=== PATIENT | male | born 1950 | race Caucasian/White ===

== ENCOUNTER 2018-02-12 08:35 | Outpatient (CLI) | payer MEDICARE ==
--- NOTE | 2018-02-12 15:04 | NM ---
NUCLEAR MEDICINE BRAIN IMAGING: Date: 02/12/18 HISTORY: Unspecified dementia with behavioral disturbance. TECHNIQUE: A DaTscan with axial tomographic images of the brain was obtained 3 hours following the intravenous a dministration of 4.7 mCi Iodine-123 Ioflupane. The patient was pretreated with 130 mg of potassium io dide 1 hour prior to the injection. FINDINGS: There is normal, symmetric uptake in the striata bilaterally, demonstrating symmetric, crescent-shape d, focal regions of activity mirrored about the median plane. IMPRESSION: Normal exam. POS: OFF
== END 2018-02-12 08:36 | disposition home or self-care (01) ==
LOC: NM 08:35
PROVIDERS: ATTEND Psychiatry & Neurology Neurology
DX: F03.91 Unspecified dementia, unspecified severity, with behavioral disturbance (principal)
CPT/HCPCS: 78607; A9584